=== PATIENT | male | born 1960 | race Caucasian/White ===

== ENCOUNTER 2021-07-26 12:26 | Outpatient (CLI) | payer BC | END 2021-07-26 12:27 | disposition home or self-care (01) | LOC: CSHCT 12:26 | PROVIDERS: ATTEND Student in an Organized Health Care Education/Training Program | DX: R22.1 Localized swelling, mass and lump, neck (principal) | CPT/HCPCS: 70491; 82565 ==

== ENCOUNTER 2025-06-18 09:23 | Outpatient (CLI) | payer MEDICARE | END 2025-06-18 09:24 | disposition home or self-care (01) | LOC: CSHSLEEP 09:23 | PROVIDERS: ATTEND Family Medicine | DX: G47.33 Obstructive sleep apnea (adult) (pediatric) (principal); R53.83 Other fatigue; E66.9 Obesity, unspecified; Z68.43 Body mass index [BMI] 50.0-59.9, adult | CPT/HCPCS: 95811 ==

== ENCOUNTER 2025-08-15 08:50 | Outpatient (CLI) | payer MEDICARE | END 2025-08-15 08:51 | disposition home or self-care (01) | LOC: CSHSLEEP 08:50 | PROVIDERS: ATTEND Orthopaedic Surgery | DX: G47.33 Obstructive sleep apnea (adult) (pediatric) (principal); R53.83 Other fatigue; E66.9 Obesity, unspecified; Z68.43 Body mass index [BMI] 50.0-59.9, adult | CPT/HCPCS: 95811 ==